=== PATIENT | female | born 1950 | race Caucasian/White ===

== ENCOUNTER 2017-02-15 12:45 | Observation (INO) | payer OTHER, BC ==
[~2017-02-15] VITALS: Ht 154.9 cm; Wt 72.1 kg
[~2017-02-15 12:45] MED LIST: ADVAIR 250/501 DISK; ADVAIR 250/501 DISK IH; ADVAIR 500/501 DISK IH; ALBUTEROL1.25 MG/3 IH; ALEVE220 MG PO; ASPIR 8181 M1 PO; ATORVASTATIN CA20 MG PO; ATORVASTATIN CA80 MG PO; AZELASTINE HCL; Aspirin E.C. PO; BELVIQ10 MG PO; CELEBREX200 MG PO; CIPROFLOXACIN500 M1 PO; CITRACAL W/V1 TABLE1 PO; CLONIDINE HCL0.1 MG PO; CYMBALTA30 MG PO; Cymbalta PO; DIOVAN160 MG PO; EFFIENT10 MG PO; ENDOCET 5-3251 EACH PO; FORTAMET500 M1 PO; Flonase BOTH NARES; HUMALOG100 UNIT/1 SC; HUMALOG100 UNIT/2; HYZAAR 100-21 TABLET PO; LANTUS 3 M100 UNITS1; LEVEMIR FL100 UNITS/ SC; LEXAPRO; LEXAPRO5 MG PO; LIDODERM 5% P1 PATCH TD; LOPRESSOR50 MG PO; LOSARTAN-HCTZ1 EAC1 PO; LOSARTAN-HCTZ1 EACH PO; LOW DOSE ASPIRI81 M1 PO; METFORMIN HCL500 M1 PO; MIRALAX255 GM PO; NASONEX17 GM BOTH NARES; NITROSTAT0.4 MG SL; OMEPRAZOLE40 M1; OMEPRAZOLE40 M1 PO; ONGLYZA5 MG PO; OXYCODONE HCL5 MG PO; PROAIR HFA8.5 GM IH; PROVENTIL HFA6.7 GM IH; Proventil,Ventolin H IH; ROXICODONE5 MG PO; SINGULAIR10 MG PO; SPIRIVA1 INHALATI; SPIRIVA1 INHALATI IH; SYNTHROID112 MCG PO; SYNTHROID125 MCG PO; XOPENEX1.25 MG/3 IH; Zithromax PO; celeBREX PO
[2017-02-15 13:32] LABS: HEMATOCRIT 38.9 % (36.0-46.0); MCH 30.8 PG (29.0-34.0); MCHC 32.4 G/DL (30.0-36.0); MCV 95.1 FL (83-99); MEAN PLAT.VOLUME 10.3 uM^3 (9.5-12.4); PLATELET COUNT 369 K/uL (156-360); RBC DIS.WIDTH-CV 12.4 % (11.8-14.6); RBC DIS.WIDTH-SD 42.9 % (39-53); RED BLOOD COUNT 4.09 M/uL (3.80-5.20); WHITE BLOOD COUNT 9.6 K/uL (4.1-10.2)
[2017-02-15 13:40] LABS: CHLORIDE 102 mEq/L (99-109); POTASSIUM 4.2 mEq/L (3.7-5.4); SODIUM 136 mEq/L (136-147)
[2017-02-15 13:42] LABS: GLUCOSE 284 mg/dL (70-99)
[2017-02-15 13:44] LABS: ANION GAP 13 MEQ/L (2-14)
[2017-02-15 13:46] LABS: GFR ESTIMATE (CALCULATED) 40 mL/min/
[2017-02-15 13:47] LABS: UREA NITROGEN (BUN) 19 mg/dL (9-23)
[2017-02-15 13:53] LABS: TROP-I INTERPRETATION NEGATIVE; TROPONIN-I < 0.01 ng/mL (0.0-0.30)
[2017-02-15 15:42] LABS: D-DIMER ELISA 0.73 mg/L FEU (< 0.57)
[2017-02-15] MEDS ORDERED: LEVO-T125 MCG PO (17:29)
[2017-02-15] MEDS ORDERED: ATORVASTATIN CA80 MG PO (17:31)
[2017-02-15] MEDS ORDERED: TYLENOL REGULA325 MG PO (17:31)
[2017-02-15] MEDS ORDERED: NOVOLOG PE100 UNITS/ SC (17:33)
[2017-02-15] MEDS ORDERED: CALCITRIOL0.25 MCG PO (17:37)
[2017-02-15] MEDS ORDERED: VICTOZA 2-0.6 MG/0.1 SC (17:37)
[2017-02-15] MEDS ORDERED: SINGULAIR10 MG PO (17:38)
[2017-02-15] MEDS ORDERED: OPCON-A EYE DRO15 ML BOTH EYES (17:39)
[2017-02-15 18:00] LABS: ADD MIUA? YES; BILIRUBIN NEGATIVE; BLOOD NEGATIVE; COLOR YELLOW ((YELLOW)); GLUCOSE (STRIP) NEGATIVE; KETONES NEGATIVE; LEUKOCYTES TRACE; NITRITE NEGATIVE; PROTEIN (STRIP) NEGATIVE; UROBILINOGEN 0.2 MG/DL (0.2-1.0)
[2017-02-15 18:28] LABS: BACTERIA NONE SEEN /HPF; EPITHELIAL CELLS 1+ /HPF; MUCUS NONE SEEN /LPF; RED BLOOD CELLS 0-5 /HPF (0-5); UCUL ADDED? NO; WHITE BLOOD CELLS 0-5 /HPF (0-5)
[2017-02-15 19:05] LABS: TOTAL BILIRUBIN 0.4 mg/dL (0.0-1.0)
[2017-02-15 19:06] LABS: ALKALINE PHOSPHATASE 166 IU/L (3-129)
[2017-02-15 19:09] LABS: DIRECT BILIRUBIN 0.2 mg/dL (0.0-0.3)
[2017-02-15 19:22] VITALS: BP 132/60
[2017-02-15 20:47] LABS: TROP-I INTERPRETATION NEGATIVE; TROPONIN-I 0.02 ng/mL (0.0-0.30)
[2017-02-16] VITALS (8 sets, daily range): BP systolic 139–179; BP diastolic 63–77
[2017-02-16 02:07] LABS: TROP-I INTERPRETATION NEGATIVE; TROPONIN-I 0.02 ng/mL (0.0-0.30)
[2017-02-16] MEDS ORDERED: METOPROLOL TART75 MG PO (07:17)
[2017-02-16 08:11] LABS: HEMATOCRIT 29.2 % (36.0-46.0); MCH 31.5 PG (29.0-34.0); MCHC 32.5 G/DL (30.0-36.0); MCV 96.7 FL (83-99); RBC DIS.WIDTH-CV 12.5 % (11.8-14.6); WHITE BLOOD COUNT 7.1 K/uL (4.1-10.2)
[2017-02-16 08:12] LABS: RED BLOOD COUNT 3.02 M/uL (3.80-5.20)
[2017-02-16 08:15] LABS: POINT-OF-CARE METER ID UU14162513
[2017-02-16 08:27] LABS: ANION GAP 9 MEQ/L (2-14); CHLORIDE 109 MEQ/L (99-109); GFR ESTIMATE (CALCULATED) > 59 mL/min/; GLUCOSE 205 mg/dL (70-99); POTASSIUM 4.3 MEQ/L (3.7-5.4); SAMPLE HEMOLYSIS CHECK 0; SAMPLE ICTERIC CHECK 0; SAMPLE LIPEMIA CHECK 0; SODIUM 140 MEQ/L (136-147); UREA NITROGEN (BUN) 13 mg/dL (9-23)
[2017-02-16 09:34] LABS: MEAN PLAT.VOLUME 10.5 uM^3 (9.5-12.4); PLAT.SUFFICIENCY ADEQUATE
[2017-02-16 09:43] LABS: PLATELET COUNT 257 K/uL (156-360)
[2017-02-16 12:25] LABS: POINT-OF-CARE METER ID UU13113700
[2017-02-16] MEDS ORDERED: LOPRESSOR50 MG PO (14:41)
== END 2017-02-16 15:50 | disposition home or self-care (01) ==
LOC: EME 12:45 → 5WEST 18:02 → EDOF 18:02 → 5WEST 19:09
PROVIDERS: Emergency Medicine; Hospitalist
DX: I95.1 Orthostatic hypotension (principal); N17.9 Acute kidney failure, unspecified; R00.0 Tachycardia, unspecified; J44.9 Chronic obstructive pulmonary disease, unspecified; J45.909 Unspecified asthma, uncomplicated; E11.65 Type 2 diabetes mellitus with hyperglycemia; N18.9 Chronic kidney disease, unspecified; I25.2 Old myocardial infarction; Z95.5 Presence of coronary angioplasty implant and graft; Z86.74 Personal history of sudden cardiac arrest; E78.5 Hyperlipidemia, unspecified; Z96.41 Presence of insulin pump (external) (internal); I10 Essential (primary) hypertension; E03.9 Hypothyroidism, unspecified; Z87.891 Personal history of nicotine dependence; F95.9 Tic disorder, unspecified
CPT/HCPCS: 71020; 71275; 80048; 80076; 81003; 82948; 83605; 84484; 85027; 85379; 87040; 93005; 94640; 94640 76; 99202; 99281; 99285; G0378; J1644; J1815; J7030

== ENCOUNTER 2017-03-10 09:41 | Emergency (ER) | payer OTHER, BC ==
[~2017-03-10] VITALS: Ht 154.9 cm; Wt 70.3 kg
[~2017-03-10 09:41] MED LIST changes: +CALCITRIOL0.25 MCG PO; +LEVO-T125 MCG PO; +METOPROLOL TART75 MG PO; +NOVOLOG PE100 UNITS/ SC; +OPCON-A EYE DRO15 ML BOTH EYES; +TYLENOL REGULA325 MG PO; +VICTOZA 2-0.6 MG/0.1 SC
[2017-03-10 11:10] LABS: EOSINOPHIL (%) 1.3 % (0-5); EOSINOPHIL COUNT 0.2 K/uL (0-0.3); HEMATOCRIT 36.6 % (36.0-46.0); IMMATURE GRANULOCYTE (%) 0.6 % (0.0-0.7); IMMATURE GRANULOCYTE COUNT 0.1 K/uL; LYMPHOCYTE COUNT 1.4 K/uL (1.0-2.8); MCH 30.5 PG (29.0-34.0); MCHC 32.8 G/DL (30.0-36.0); MCV 92.9 FL (83-99); MEAN PLAT.VOLUME 10.5 uM^3 (9.5-12.4); MONOCYTE (%) 6.6 % (3-12); MONOCYTE COUNT 0.8 K/uL (0-0.8); NEUTROPHIL (%) 80.2 % (45-76); PLATELET COUNT 316 K/uL (156-360); RBC DIS.WIDTH-CV 12.1 % (11.8-14.6); RBC DIS.WIDTH-SD 41.5 % (39-53); RED BLOOD COUNT 3.94 M/uL (3.80-5.20); WHITE BLOOD COUNT 12.5 K/uL (4.1-10.2)
[2017-03-10 11:21] LABS: CHLORIDE 99 mEq/L (99-109); POTASSIUM 4.3 mEq/L (3.7-5.4); SODIUM 133 mEq/L (136-147)
[2017-03-10 11:22] LABS: GLUCOSE 327 mg/dL (70-99)
[2017-03-10 11:24] LABS: ANION GAP 11 MEQ/L (2-14)
[2017-03-10 11:26] LABS: GFR ESTIMATE (CALCULATED) 40 mL/min/
[2017-03-10 11:27] LABS: UREA NITROGEN (BUN) 20 mg/dL (9-23)
[2017-03-10 11:29] LABS: URIC ACID 7.4 mg/dL (3.1-9.2)
[2017-03-10] MEDS ORDERED: PERCOCET 5/31 TABLET PO (12:46)
[2017-03-10 13:09] VITALS: BP 125/70
== END 2017-03-10 13:09 | disposition home or self-care (01) ==
LOC: EME 09:41
PROVIDERS: Emergency Medicine
DX: M19.042 Primary osteoarthritis, left hand (principal); J45.909 Unspecified asthma, uncomplicated; E11.9 Type 2 diabetes mellitus without complications; J44.9 Chronic obstructive pulmonary disease, unspecified; E78.5 Hyperlipidemia, unspecified; I10 Essential (primary) hypertension; I25.2 Old myocardial infarction; K21.9 Gastro-esophageal reflux disease without esophagitis; G47.30 Sleep apnea, unspecified; Z98.61 Coronary angioplasty status; Z87.891 Personal history of nicotine dependence
CPT/HCPCS: 73130; 80048; 84550; 85025; 99281; 99284

== ENCOUNTER 2017-07-05 22:07 | Inpatient (IN) | payer OTHER, BC ==
[~2017-07-05] VITALS: Ht 156.2 cm; Wt 73.8 kg
[~2017-07-05 22:07] MED LIST changes: +INSULIN PUMP MC; +PERCOCET 5/31 TABLET PO
[2017-07-06 10:42] LABS: POINT-OF-CARE METER ID UU13113694
[2017-07-06 10:47] VITALS: BP 144/73
[2017-07-06 14:37] LABS: POINT-OF-CARE METER ID UU13113675
[2017-07-06 17:51] VITALS: BP 180/91
[2017-07-06 20:09] VITALS: BP 150/92
[2017-07-07 00:05] VITALS: BP 156/64
[2017-07-07 03:46] VITALS: BP 145/65
[2017-07-07 06:27] LABS: POINT-OF-CARE METER ID UU14188577
[2017-07-07 07:20] LABS: HEMATOCRIT 28.3 % (36.0-46.0); MCV 92.8 FL (83-99)
[2017-07-07 07:49] LABS: ANION GAP 9 MEQ/L (2-14); CHLORIDE 106 MEQ/L (99-109); GFR ESTIMATE (CALCULATED) 59 mL/min/; GLUCOSE 203 mg/dL (70-99); POTASSIUM 4.6 MEQ/L (3.7-5.4); SAMPLE HEMOLYSIS CHECK 0; SAMPLE ICTERIC CHECK 0; SAMPLE LIPEMIA CHECK 0; SODIUM 141 MEQ/L (136-147); UREA NITROGEN (BUN) 16 mg/dL (9-23)
[2017-07-07 08:23] VITALS: BP 144/63
[2017-07-07] MEDS ORDERED: BENADRYL25 MG PO (09:23)
[2017-07-07] MEDS ORDERED: ASPIRIN EC325 MG PO (09:24)
[2017-07-07] MEDS ORDERED: SENNA PLUS TAB1 EACH PO (09:26)
[2017-07-07] MEDS ORDERED: ENDOCET 5-3251 EACH PO (09:27)
[2017-07-07 11:51] VITALS: BP 148/72
[2017-07-07 16:22] VITALS: BP 133/63
[2017-07-07 16:29] LABS: POINT-OF-CARE METER ID UU14117124
[2017-07-07 21:53] LABS: POINT-OF-CARE METER ID UU14117124
[2017-07-08 00:05] VITALS: BP 132/70
[2017-07-08 06:50] LABS: MCV 90.9 FL (83-99)
[2017-07-08 07:04] LABS: POINT-OF-CARE METER ID UU14117124
[2017-07-08 08:00] VITALS: BP 145/65
[2017-07-08 11:18] LABS: POINT-OF-CARE METER ID UU14208753
[2017-07-08 16:15] VITALS: BP 132/62
[2017-07-08 16:32] LABS: POINT-OF-CARE METER ID UU14208753
[2017-07-08 21:46] LABS: POINT-OF-CARE METER ID UU14208753
[2017-07-09 00:18] VITALS: BP 128/60
[2017-07-09 06:39] LABS: POINT-OF-CARE METER ID UU14117124
[2017-07-09 07:13] VITALS: BP 163/72
[2017-07-09 11:38] LABS: POINT-OF-CARE METER ID UU14188577
[2017-07-12 17:02] LABS: POINT-OF-CARE METER ID UU13113720
== END 2017-07-09 15:35 | DRG 482 ==
LOC: ENRESERV 22:07 → 2SOUTH 07-06 09:54 → 3EAST 07-06 09:54 → SDC 07-06 12:24 → ENRESERV 07-06 14:44 → 2SOUTH 07-06 15:35 → EDSTATUS 07-06 15:40 → 2SOUTH 07-06 15:58 → 3EAST 07-06 16:58
PROVIDERS: Orthopaedic Surgery Sports Medicine
PROC: 0SH Lower Joints, Insertion (ICD-10-PCS; principal; 2017-07-06)
DX: S72.031A Displaced midcervical fracture of right femur, initial encounter for closed fracture (principal); E11.9 Type 2 diabetes mellitus without complications; Z68.30 Body mass index [BMI] 30.0-30.9, adult; M19.90 Unspecified osteoarthritis, unspecified site; E78.5 Hyperlipidemia, unspecified; E03.9 Hypothyroidism, unspecified; J44.9 Chronic obstructive pulmonary disease, unspecified; W06.XXXA Fall from bed, initial encounter; I25.2 Old myocardial infarction; Y92.009 Unspecified place in unspecified non-institutional (private) residence as the place of occurrence of the external cause; Z91.81 History of falling; Z82.62 Family history of osteoporosis; Z82.49 Family history of ischemic heart disease and other diseases of the circulatory system
CPT/HCPCS: 36415; 73502; 76000; 80048; 80053; 82306; 82306 GA; 82948; 85014; 85018; 85025; 85610 GA; 85730 GA; 86850; 86900; 86901; 97530 GO; C1769; G0378; G8987 GO CJ; G8988 GO CH; J0690; J1170; J1815; J2250; J2405; J3010

== ENCOUNTER 2017-07-09 11:15 | Inpatient (IN) | payer OTHER, BC ==
[~2017-07-09] VITALS: Ht 156.2 cm; Wt 73.8 kg
[~2017-07-09 11:15] MED LIST changes: +ASPIRIN EC325 MG PO; +BENADRYL25 MG PO; +SENNA PLUS TAB1 EACH PO
[2017-07-09 15:56] VITALS: BP 132/60
[2017-07-09 21:16] LABS: POINT-OF-CARE METER ID UU14174215
[2017-07-10 00:15] VITALS: BP 138/71
[2017-07-10 05:46] VITALS: BP 133/74
[2017-07-10 07:15] LABS: HEMATOCRIT 29.2 % (36.0-46.0); MCH 29.7 PG (29.0-34.0); MCHC 32.5 G/DL (30.0-36.0); MCV 91.3 FL (83-99); MEAN PLAT.VOLUME 10.3 uM^3 (9.5-12.4); PLATELET COUNT 303 K/uL (156-360); RBC DIS.WIDTH-CV 13.2 % (11.8-14.6); RBC DIS.WIDTH-SD 44.5 % (39-53); WHITE BLOOD COUNT 5.8 K/uL (4.1-10.2)
[2017-07-10 07:26] LABS: POINT-OF-CARE METER ID UU13113720; POINT-OF-CARE USER ID AHSSSJB31
[2017-07-10 07:45] LABS: ALKALINE PHOSPHATASE 138 IU/L (3-129); ANION GAP 7 MEQ/L (2-14); CHLORIDE 103 MEQ/L (99-109); GFR ESTIMATE (CALCULATED) > 59 mL/min/; GLUCOSE 219 mg/dL (70-99); POTASSIUM 4.6 MEQ/L (3.7-5.4); SAMPLE HEMOLYSIS CHECK 0; SAMPLE ICTERIC CHECK 0; SAMPLE LIPEMIA CHECK 0; SODIUM 139 MEQ/L (136-147); TOTAL BILIRUBIN 0.4 MG/DL (0.0-1.0); UREA NITROGEN (BUN) 17 mg/dL (9-23)
[2017-07-10 11:38] LABS: POINT-OF-CARE METER ID UU13113720; POINT-OF-CARE USER ID AHSSSJB31
[2017-07-10 15:12] VITALS: BP 178/80
[2017-07-10 16:32] LABS: POINT-OF-CARE METER ID UU14174215
[2017-07-10 17:34] VITALS: BP 152/80
[2017-07-10 21:16] LABS: POINT-OF-CARE METER ID UU14174215
[2017-07-11 05:33] VITALS: BP 132/81
[2017-07-11 07:16] LABS: POINT-OF-CARE METER ID UU13113720; POINT-OF-CARE USER ID AHSSSJB31
[2017-07-11 12:02] LABS: POINT-OF-CARE METER ID UU13113720; POINT-OF-CARE USER ID AHSSSJB31
[2017-07-11 16:07] VITALS: BP 165/70
[2017-07-11 16:41] LABS: POINT-OF-CARE METER ID UU14174215
[2017-07-11 21:26] LABS: POINT-OF-CARE METER ID UU14174215
[2017-07-12 05:04] VITALS: BP 147/65
[2017-07-12 07:00] LABS: POINT-OF-CARE METER ID UU13113720; POINT-OF-CARE USER ID ENVGAF
[2017-07-12 11:10] LABS: POINT-OF-CARE METER ID UU13113720
[2017-07-12 15:24] VITALS: BP 170/82
[2017-07-12 16:03] VITALS: BP 131/63
[2017-07-12 16:25] LABS: POINT-OF-CARE METER ID UU14174215
[2017-07-12 20:48] LABS: POINT-OF-CARE METER ID UU13113720
[2017-07-13 06:12] VITALS: BP 112/60
[2017-07-13 07:11] LABS: POINT-OF-CARE METER ID UU13113720; POINT-OF-CARE USER ID AHSSSJB31
[2017-07-13 11:12] LABS: POINT-OF-CARE METER ID UU14174215; POINT-OF-CARE USER ID AHSSSJB31
[2017-07-13 15:38] VITALS: BP 147/70
[2017-07-13 16:30] LABS: POINT-OF-CARE METER ID UU14174215
[2017-07-13 20:59] LABS: POINT-OF-CARE METER ID UU13113720
[2017-07-14 05:05] VITALS: BP 139/61
[2017-07-14 06:47] LABS: POINT-OF-CARE METER ID UU14174215; POINT-OF-CARE USER ID ENVGAF
[2017-07-14 11:21] LABS: POINT-OF-CARE METER ID UU14174215; POINT-OF-CARE USER ID ENVGAF
[2017-07-14 15:34] VITALS: BP 155/70
[2017-07-14 16:27] LABS: POINT-OF-CARE METER ID UU13113720
[2017-07-14 21:13] LABS: POINT-OF-CARE METER ID UU13113720
[2017-07-15 04:12] VITALS: BP 149/58
[2017-07-15 06:53] LABS: HEMATOCRIT 31.9 % (36.0-46.0); MCH 29.7 PG (29.0-34.0); MCHC 32.6 G/DL (30.0-36.0); MCV 91.1 FL (83-99); MEAN PLAT.VOLUME 10.1 uM^3 (9.5-12.4); PLATELET COUNT 330 K/uL (156-360); RBC DIS.WIDTH-CV 13.6 % (11.8-14.6); RBC DIS.WIDTH-SD 44.2 % (39-53); WHITE BLOOD COUNT 7.3 K/uL (4.1-10.2)
[2017-07-15 07:19] LABS: ALKALINE PHOSPHATASE 137 IU/L (3-129); ANION GAP 10 MEQ/L (2-14); CHLORIDE 104 MEQ/L (99-109); GFR ESTIMATE (CALCULATED) > 59 mL/min/; GLUCOSE 212 mg/dL (70-99); POTASSIUM 4.5 MEQ/L (3.7-5.4); SAMPLE HEMOLYSIS CHECK 0; SAMPLE ICTERIC CHECK 0; SAMPLE LIPEMIA CHECK 0; SODIUM 139 MEQ/L (136-147); TOTAL BILIRUBIN 0.4 MG/DL (0.0-1.0)
[2017-07-15 07:20] LABS: UREA NITROGEN (BUN) 26 mg/dL (9-23)
[2017-07-15 07:30] LABS: POINT-OF-CARE METER ID UU14174215
[2017-07-15 11:19] LABS: POINT-OF-CARE METER ID UU14174215
[2017-07-15 15:26] VITALS: BP 139/50
[2017-07-15 16:32] LABS: POINT-OF-CARE METER ID UU13113720
[2017-07-15 21:20] LABS: POINT-OF-CARE METER ID UU14174215
[2017-07-15] MEDS ORDERED: TRAMADOL HCL50 MG PO (21:58)
[2017-07-15] MEDS ORDERED: ASPIRIN EC325 MG PO (21:58)
[2017-07-15] MEDS ORDERED: DOCUSATE SODIU100 MG PO (21:58)
[2017-07-15] MEDS ORDERED: SENNA PLUS TAB1 EACH PO (21:58)
[2017-07-16 04:54] VITALS: BP 117/56
[2017-07-16 06:52] LABS: POINT-OF-CARE METER ID UU13113720
[2017-07-16 11:20] LABS: POINT-OF-CARE METER ID UU14174215
[2017-07-16] MEDS ORDERED: PROMETHAZINE HC25 M1 PO (12:48)
[2017-07-16] MEDS ORDERED: Chronulac,Cephulac,E PO (12:53)
== END 2017-07-16 13:45 | DRG 560 ==
LOC: 3WEST 11:15
PROVIDERS: Physical Medicine & Rehabilitation Pain Medicine
PROC: F07M0ZZ Range of Motion and Joint Mobility Treatment of Musculoskeletal System - Whole Body (ICD-10-PCS; principal; 2017-07-09)
DX: S72.001D Fracture of unspecified part of neck of right femur, subsequent encounter for closed fracture with routine healing (principal); W06.XXXD Fall from bed, subsequent encounter; R26.2 Difficulty in walking, not elsewhere classified; G89.18 Other acute postprocedural pain; D62 Acute posthemorrhagic anemia; M16.11 Unilateral primary osteoarthritis, right hip; E03.9 Hypothyroidism, unspecified; E78.5 Hyperlipidemia, unspecified; I10 Essential (primary) hypertension; J44.9 Chronic obstructive pulmonary disease, unspecified; E11.65 Type 2 diabetes mellitus with hyperglycemia; E78.00 Pure hypercholesterolemia, unspecified; K21.9 Gastro-esophageal reflux disease without esophagitis; K59.00 Constipation, unspecified; E66.9 Obesity, unspecified; Z68.30 Body mass index [BMI] 30.0-30.9, adult; Z95.5 Presence of coronary angioplasty implant and graft
CPT/HCPCS: 74000; 80053; 82948; 85027; 94640; 94640 76; 94760; 97110 GO; 97530 GP; 99202

== ENCOUNTER 2017-10-20 08:53 | Emergency (ER) | payer OTHER, BC ==
[~2017-10-20] VITALS: Ht 154.9 cm; Wt 75.2 kg
[~2017-10-20 08:53] MED LIST changes: +Chronulac,Cephulac,E PO; +DOCUSATE SODIU100 MG PO; +PROMETHAZINE HC25 M1 PO; +TRAMADOL HCL50 MG PO
[2017-10-20 09:28] LABS: EOSINOPHIL (%) 0 % (0-5); HEMATOCRIT 31.4 % (36.0-46.0); IMMATURE GRANULOCYTE (%) 0.8 % (0.0-0.7); IMMATURE GRANULOCYTE COUNT 0.1 K/uL; LYMPHOCYTE COUNT 0.6 K/uL (1.0-2.8); MCH 29.1 PG (29.0-34.0); MCHC 32.2 G/DL (30.0-36.0); MCV 90.5 FL (83-99); MEAN PLAT.VOLUME 10.6 uM^3 (9.5-12.4); MONOCYTE (%) 4.4 % (3-12); MONOCYTE COUNT 0.5 K/uL (0-0.8); PLATELET COUNT 356 K/uL (156-360); RBC DIS.WIDTH-CV 14.9 % (11.8-14.6); RBC DIS.WIDTH-SD 49.7 % (39-53); RED BLOOD COUNT 3.47 M/uL (3.80-5.20); WHITE BLOOD COUNT 12.2 K/uL (4.1-10.2)
[2017-10-20 09:37] LABS: CHLORIDE 99 mEq/L (99-109); POTASSIUM 4.3 mEq/L (3.7-5.4); SODIUM 131 mEq/L (136-147)
[2017-10-20 09:40] LABS: ANION GAP 13 MEQ/L (2-14)
[2017-10-20 09:41] LABS: GLUCOSE 649 mg/dL (70-99)
[2017-10-20 09:43] LABS: GFR ESTIMATE (CALCULATED) 40 mL/min/
[2017-10-20 09:44] LABS: UREA NITROGEN (BUN) 25 mg/dL (9-23)
[2017-10-20 10:02] LABS: CARBON DIOXIDE (BICARBONATE) 23.2 MEQ/L (20-31)
[2017-10-20 10:46] LABS: ADD MIUA? NO; BILIRUBIN NEGATIVE; BLOOD NEGATIVE; COLOR STRAW ((YELLOW)); GLUCOSE (STRIP) >=500; KETONES NEGATIVE; LEUKOCYTES NEGATIVE; NITRITE NEGATIVE; PROTEIN (STRIP) NEGATIVE; SPECIFIC GRAVITY 1.024 (1.000-1.030); UROBILINOGEN 0.2 MG/DL (0.2-1.0)
[2017-10-20 11:53] LABS: POINT-OF-CARE METER ID UU13113747
[2017-10-20 13:39] LABS: POINT-OF-CARE METER ID UU13113747
[2017-10-20 13:55] VITALS: BP 165/81
== END 2017-10-20 13:57 | disposition home or self-care (01) ==
LOC: EME 08:53
PROVIDERS: Emergency Medicine
DX: E11.65 Type 2 diabetes mellitus with hyperglycemia (principal); Z79.4 Long term (current) use of insulin; Z96.41 Presence of insulin pump (external) (internal); J44.9 Chronic obstructive pulmonary disease, unspecified; E78.5 Hyperlipidemia, unspecified; I10 Essential (primary) hypertension; Z95.5 Presence of coronary angioplasty implant and graft; Z87.891 Personal history of nicotine dependence
CPT/HCPCS: 71010; 80048; 81003; 82010; 82803; 82948; 85025; 94640; 99281; 99285; J7030